=== PATIENT | female | born 1945 | race Caucasian/White ===

== ENCOUNTER 2020-06-22 10:03 | Outpatient (REF) | payer MEDICARE, SELFPAY ==
--- NOTE | 2020-06-22 10:16 | MR_ITS ---
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 COMPARISON: None available. TECHNIQUE: Multiplanar multisequence MR imaging of the brain and orbits obtained without and following the administration of 7.5 mL of Gadavist without complication. FINDINGS: MRI BRAIN: There is no pathologic intracranial enhancement. There is no hydrocephalus, extra-axial surface collection, or herniation. Is mild chronic microangiopathy. Two nodular flow voids project inferiorly from the terminal segment of the left internal carotid artery on image 10 of series 8, one of which could reflect an aneurysm of the anterior choroidal artery origin for which a MRA of the head is recommended for further assessment. The major flow voids at the skull base are preserved. There is no acute infarct on diffusion-weighted imaging. There is no intracranial hemorrhage on the gradient recalled echo acquisition. The midline structures are normal. The cerebellar tonsils are normally positioned. The cerebellum and brainstem are normal. The craniocervical junction is normal. Osseous marrow signal intensity is homogenous. 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 The remaining intraorbital soft tissues including the extraocular muscles, lacrimal glands, and optic nerves are normal. Preserved fat within the orbital fissures and pterygopalatine fossa bilaterally. Bone marrow signal is homogenous and normal. No pathologic signal nor enhancement within the optic nerves. Pituitary gland is homogenous and unremarkable. Cavernous sinuses are symmetric and normal MR/MR orbits face neck wo/w con IMPRESSION: - Two nodular flow voids project inferiorly from the terminal segment of the left internal carotid artery on image 10 of series 8, one of which could reflect an aneurysm of the anterior choroidal artery origin for which a MRA of the head is recommended for further assessment. - No acute intracranial findings. No enhancing lesions. Mild chronic microangiopathy. 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 No intraorbital mass lesions.
== END 2020-06-22 10:04 | disposition home or self-care (01) ==
LOC: HO.MRI 10:03
PROVIDERS: Visit Provider Emergency Medicine
DX: H49.02 Third [oculomotor] nerve palsy, left eye (principal)
CPT/HCPCS: 70543; 70553

== ENCOUNTER 2020-06-26 10:45 | Outpatient (REF) | payer MEDICARE, SELFPAY ==
--- NOTE | 2020-06-26 | MM_ITS ---
EXAMINATION: BONE DENSITOMETRY CLINICAL INDICATION: Other specified disorders of bone density and structure, unspecified site. COMPARISON: Previous BD dated 04/07/2013 and baseline BD dated 12/31/2007. TECHNIQUE: Using a [employer] DXA System (software version: 13.1) manufactured by [employer], dual-energy x-ray absorptiometry was performed of the lumbar spine and left hip. The images are of good technical quality. Summary results are attached. FINDINGS: AP SPINE L1-L4: Current: BMD 0.998 g/cm2, Z-score -0.1, T-score -1.5, osteopenia, 2.2% decrease from previous, 2.1% decrease from baseline (<5% change is not significant). Prior: BMD 1.020 g/cm2. Baseline: BMD 1.019 g/cm2. LEFT FEMUR, NECK: Current: BMD 0.883 g/cm2, Z-score 0.5, T-score -1.1, osteopenia. Prior: BMD 0.880 g/cm2. Baseline: BMD 0.908 g/cm2. LEFT FEMUR, TOTAL: Current: BMD 1.005 g/cm2, Z-score 1.4, T-score 0.0, normal, 3.6% decrease from previous, 4.3% decrease from baseline (<5% change is not significant). Prior: BMD 1.043 g/cm2. Baseline: BMD 1.050 g/cm2. IDENTIFIED RISK FACTORS: Dementia. Recurrent falls. Secondary osteoporosis (type 1 diabetes). Menopause. HISTORY OF FRACTURE: None listed. MEDICATIONS: Calcium supplement and/or multivitamin. Vitamin D. MM/XR DEXA axial skeleton IMPRESSION: 1. DIAGNOSIS: Osteopenia based on the lowest T-score value of -1.5 in the lumbar spine applying World Health Organization criteria. 2. 10-YEAR FRACTURE RISK PREDICTION, FRAX: Major osteoporotic fracture (clinical spine, forearm, hip or shoulder) 5.2%. Hip fracture 0.7%. 3. Treatment Recommendations: NOF guidelines recommend consideration for treatment in postmenopausal women and men age 50 and older presenting with the following: -A hip or vertebral (clinical or morphometric) fracture. -T-score less than or equal to -2.5 at the femoral neck or spine after appropriate evaluation to exclude secondary causes. -Low bone mass at the hip or spine and a 10-year fracture probability by FRAX of greater than or equal to 3% for hip fracture or greater than or equal to 20% for major osteoporotic fracture based on the [place] adapted WHO algorithm. 4. Other Recommendations: All treatment decisions require clinical judgment and consideration of individual patient factors, including patient preferences, comorbidities, previous drug use, risk factors not captured in the FRAX model (e.g. frailty, falls, vitamin D deficiency, increased bone turnover, interval significant decline in bone density) and possible under or overestimation of fracture risk by FRAX. Additional medical evaluation for secondary cause of low bone mineral density may be appropriate. FUTURE SCAN RECOMMENDATION: People with diagnosed cases of osteoporosis or at high risk for fracture should have regular bone mineral density tests. For patients eligible for Medicare, routine testing is allowed once every 2 years. The testing frequency can be increased to one year for patients who have rapidly progressing disease, those who are receiving or discontinuing medical therapy to restore bone mass, or have additional risk factors.
== END 2020-06-26 10:46 | disposition home or self-care (01) ==
LOC: HO.MAMMO 10:45
PROVIDERS: Visit Provider Registered Nurse
DX: Z13.820 Encounter for screening for osteoporosis (principal); M85.80 Other specified disorders of bone density and structure, unspecified site; M81.0 Age-related osteoporosis without current pathological fracture; E10.9 Type 1 diabetes mellitus without complications; F03.90 Unspecified dementia, unspecified severity, without behavioral disturbance, psychotic disturbance, mood disturbance, and anxiety; Z91.81 History of falling
CPT/HCPCS: 77080

== ENCOUNTER 2020-08-06 13:48 | Emergency (ER) | payer MEDICARE, SELFPAY ==
--- NOTE | 2020-08-06 14:16 | CT_ITS ---
EXAMINATION: CT HEAD WITHOUT CONTRAST CLINICAL INFORMATION: Headache COMPARISON: Head CT 03/23/2018 TECHNIQUE: Contiguous axial imaging was performed from the skull base to vertex without intravenous administration of contrast. This CT examination was performed using dose optimization techniques as appropriate, variously including the following: *Automated exposure control *Adjustment of mA and/or kV according to patient size (this includes techniques or standardized protocols for targeted exams where dose is matched to indication/reason for exam; i.e. extremities or head) *Use of iterative reconstruction technique DLP: 750 to mGy-cm FINDINGS: There is no evidence of acute intracranial hemorrhage or territorial infarction. No abnormal mass effect or midline shift is seen. Bassett to white matter differentiation is well preserved. No extra-axial fluid collections are identified. The ventricles are normal in size. There is no abnormal attenuation within the brain parenchyma. The osseous structures and soft tissues are normal. The mastoid air cells and visualized portions of the paranasal sinuses are well aerated. CT/CT head/brain wo con IMPRESSION: No acute intracranial pathology.
--- NOTE | 2020-08-06 14:16 | ED_ITS ---
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 Mode of arrival: ambulatory Limitations: no limitations History of Present Illness MD elicited complaint: headache Onset (ago): hour(s) (1) Onset description: suddenly Location: right Severity: moderate Quality & Timing: throbbing and sharp Exacerbating factors: none Relieving factors: nothing Context: occurred at rest Associated symptoms: other (feels her R eye is blurry) Treatments prior to arrival: none Related Data Allergies Allergy/AdvReac Type Severity Reaction Status Date / Time simvastatin Allergy Unknown Verified 11/18/19 00:00 No Known Allergies Allergy Unverified 05/17/20 16:42 [No Known Allergies*] Septra Allergy Unknown Uncoded 11/18/19 00:00 Review of Systems Review of Systems: Constitutional : No Fever, No Chills, No Fatigue ENT/Mouth : No sore throat, No Rhinorrhea Eyes: No Eye Pain, No Swelling, No Redness, reports blurry vision in R eye Cardiovascular : No Chest Pain, No SOB, No Dyspnea on Exertion Respiratory : No Cough, No Sputum Gastrointestinal : No Nausea, No Vomiting, No Diarrhea, No abdominal Pain Genitourinary : No Dysuria, No Urinary Frequency, No Hematuria, Musculoskeletal : No joint pain, No Myalgias, No Joint Swelling Skin : No Skin Lesions, No rash Neuro : No Weakness, No Numbness, No Dizziness, positive Headache Psych : No Anxiety/Panic, No Depression Heme/Lymph: No Bruising, No Bleeding,No Lymphadenopathy Endocrine : No Polyuria, No Polydipsia All other systems reviewed and are negative [facility] Past Medical History Attestation statement: The following information was validated with the patient. Source: old records reviewed Medical History Anxiety Regan's palsy Chronic back pain Dementia Depression Diabetes HTN (hypertension) Hyperlipidemia Legally blind in left eye, as defined in [place] Social History Social History (Updated 08/06/20 @ 14:22 by Mily Licona DO) Alcohol intake: unknown Smoking Status: Never smoker Use of substances other than those prescribed or required for medical reasons: Unknown Advance Directives: No Advance Directives Information Provided: Yes Physical Exam Vital Signs: Vital Signs: Last Vital Signs Temp 96.8 F 08/06/20 14:23 Pulse 81 08/06/20 14:23 Resp 18 08/06/20 14:23 BP 139/64 08/06/20 14:23 Pulse Ox 97 08/06/20 14:23 Body Mass Index 56.8 Appearance: Alert. Oriented X3. No acute distress. Eyes: R pupil 3mm round and reactive to light. L pupil 4mm reactive to light, L eye are does not close well appears chronic from her bells palsy, L eye is wa trevor, her face is similar to her picture ID IOP [id number] ENT: Pharynx normal. Neck: Normal inspection. Neck supple. CVS: Normal heart rate and rhythm. Pulses normal. Respiratory: No respiratory distress. Breath sounds normal. Abdomen: Soft and non-tender. Skin: Skin warm and dry. Normal skin color. Normal skin turgor. Extremities: No lower extremity edema. No calf ttp Neuro: Oriented X 3. No motor deficit. No sensory deficit. Course Course Course Narrative: given reported blurry vision although it seems to better will obtain labs and CTA to r/o mass signed out to GEO Garcias pending labs and CTA MDM - Headache MDM Narrative Medical decision making narrative: 75 yo female with HTN, DM, bells palsy comes in with 1 hour of R sided headache throbbing into her R eye reports blurry vision at this time will need CT head and pressures of eye, no other deficits noted. Lab Data Result diagrams: 08/06/20 15:49 08/06/20 15:49 Labs: Lab Results 08/06/20 08/06/20 Range/Units 15:49 15:49 WBC 7.2 (4.8-10.8) X10*3/uL RBC 4.72 (4.20-5.50) X10*6/uL Hgb 14.0 (12.0-16.0) g/dl Hct 42.6 (37-47) % MCV 90.3 (80-98) fL MCH 29.7 (27.0-33.0) pg MCHC 32.9 (31.0-35.0) g/dl RDW 11.9 (11.0-16.0) % Plt Count 214 (160-400) X10*3/uL MPV 10.6 (9.4-12.3) fL Absolute Nucleated RBC 0.000 (0.0-0.012) X10*3/uL Nucleated RBC % (auto) 0.0 (0.0-0.2) /100WBC Hold Blue Top SEE NOTE Discharge Plan Discharge Clinical Impression: Headache Qualifiers: Headache type: unspecified Headache chronicity pattern: acute headache Intractability: not intractable Qualified Code(s): R51.9 - Headache, unspecified Instructions: Acute Headache (ED) Additional Instructions: return to ED for any worsening symptoms or concerns Referrals: Physician,Unknown [Primary Care Provider] - 2 days (PCP if not better) Print Language: Croatian
[2020-08-06 14:23] VITALS: BP 139/64; PULSE 81; RESP 18; TEMP 36; O2SAT 97; BMI 56.8
[2020-08-06] MEDS: Acetaminophen 325 MG TABLET 650 MG PO (14:37)
--- NOTE | 2020-08-06 15:19 | CT_ITS ---
EXAMINATION: CT ANGIOGRAM NECK WITH CONTRAST CT ANGIOGRAM BRAIN WITH CONTRAST CLINICAL INFORMATION: Right-sided headache and blurry vision. COMPARISON: Head CT 03/23/2018. TECHNIQUE: Test bolus sequences followed by intravenous administration 70 mL of Omnipaque 350. Helical imaging was performed in the axial plane from the thoracic inlet to the skull vertex. Delayed postcontrast imaging of the head was also performed. The data was processed at the learning technologist workstation for generation of MIP sequences. Angled MIPs and volume rendered reformatted images were also generated at an offline 3D workstation under concurrent supervision. Stenoses are assessed in accordance with NASCET criteria unless otherwise indicated. This CT examination was performed using dose optimization techniques as appropriate, variously including the following: *Automated exposure control *Adjustment of mA and/or kV according to patient size (this includes techniques or standardized protocols for targeted exams where dose is matched to indication/reason for exam; i.e. extremities or head) *Use of iterative reconstruction technique FINDINGS: BRAIN: [There is no intracranial hemorrhage, hydrocephalus, extra-axial surface collection, midline shift, or other herniation pattern. Bassett to white matter differentiation is diffusely maintained without evidence of an evolved acute territorial infarct. The basilar cisterns are preserved. No significant soft tissue abnormality. No acute osseous abnormality. The paranasal sinuses and the mastoid air cells are well aerated.] CERVICAL SOFT TISSUES AND LUNG APICES: [Unremarkable. ] NECK CTA: [There is a classic 3 vessel configuration of the aortic arch. Proximal arch vessels are non-stenotic. The vertebral arteries are codominant. No significant ostial stenosis is visualized on either side. Both vertebral arteries are widely patent throughout their extracranial cervical course. Both common carotid arteries are normal in course and caliber.] There is beaded irregularity of the cervical internal carotid arteries bilaterally suggesting underlying fibromuscular dysplasia. BRAIN CTA: [There is normal opacification of major intracranial arteries. No focal flow-limiting stenosis nor discrete proximal large artery occlusion. 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 Timing of the contrast bolus allows assessment of the major dural venous sinuses, which all opacify normally] CT/CT angio head neck IMPRESSION: No acute intracranial findings. 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 There is beaded irregularity of the cervical internal carotid arteries bilaterally suggesting underlying fibromuscular dysplasia. No acute arterial occlusions and no significant arterial stenoses within the head or neck
[2020-08-06] MEDS: oxyCODONE HCl Immed Release 5 MG TABLET PO (15:38)
[2020-08-06] MEDS: Tetracaine HCl/PF 0.5% Oph Sol 4 ML DROPS 3 DROP EYE-RIGHT (15:39)
[2020-08-06 15:56] LABS: Hematocrit 42.6 % (37-47); Mean Corpuscular HGB Conc 32.9 g/dl (31.0-35.0); Mean Corpuscular Hemoglobin 29.7 pg (27.0-33.0); Mean Corpuscular Volume 90.3 fL (80-98); Mean Platelet Volume 10.6 fL (9.4-12.3); Platelet Count 214 X10*3/uL (160-400); Red Blood Count 4.72 X10*6/uL (4.20-5.50); Red Cell Distribution Width 11.9 % (11.0-16.0); White Blood Count 7.2 X10*3/uL (4.8-10.8)
[2020-08-06 16:24] LABS: Anion Gap 11 (12-20); Blood Urea Nitrogen 13 mg/dL (9-16); Calcium 8.9 mg/dL (8.4-10.2); Carbon Dioxide 28 mmol/L (22-29); Chloride 100 mmol/L (96-108); Creatinine Clr Calc Pharmacy 89.5; Estimated Glomerular Filt Rate > 60; Glucose Random 274 mg/dL (60-115); Potassium 4.4 mmol/l (3.3-5.1); Sodium 135 mmol/L (135-145)
[2020-08-06 16:37] VITALS: BP 136/82; PULSE 71
[2020-08-06] MEDS: iohexoL 350 MG/ML 100 ML INFUS..BTL IV (18:32)
[2020-08-06 18:58] VITALS: BP 151/63; PULSE 61; RESP 14; O2SAT 98
== END 2020-08-06 19:39 | disposition home or self-care (01) ==
PROVIDERS: Emergency Provider Emergency Medicine
DX: R51.9 Headache, unspecified (principal); I10 Essential (primary) hypertension; E11.9 Type 2 diabetes mellitus without complications; R93.0 Abnormal findings on diagnostic imaging of skull and head, not elsewhere classified; I67.1 Cerebral aneurysm, nonruptured
CPT/HCPCS: 36415; 70450; 70496; 70498; 80048; 85027; 99284; Q9967

== ENCOUNTER 2020-08-10 12:48 | Outpatient (REF) | payer MEDICARE, SELFPAY ==
--- NOTE | 2020-08-10 | MR_ITS ---
MR ANGIOGRAPHY BRAIN WITHOUT CONTRAST CLINICAL INFORMATION: 3rd nerve palsy. COMPARISON: CTA head and neck 08/06/2020. TECHNIQUE: A noncontrast [id number] MRA of the head is obtained. Vascular post-processing, including 2-dimensional and 3-dimensional reformatted images were created and reviewed on an independent workstation under concurrent physician supervision. Stenoses are graded per criteria similar to NASCET. FINDINGS: There is a stable appearing 3 mm saccular aneurysm projecting inferiorly from the terminal segment of the left internal carotid artery. No new aneurysms intracranially. No significant arterial stenoses and no acute arterial occlusions intracranially. MR/MR angio head wo con IMPRESSION: There is a stable appearing 3 mm saccular aneurysm projecting inferiorly from the terminal segment of the left internal carotid artery
== END 2020-08-10 12:49 | disposition home or self-care (01) ==
LOC: HO.MRI 12:48
PROVIDERS: Visit Provider Registered Nurse
DX: H49.02 Third [oculomotor] nerve palsy, left eye (principal); R93.0 Abnormal findings on diagnostic imaging of skull and head, not elsewhere classified
CPT/HCPCS: 70544

== ENCOUNTER 2020-10-17 07:14 | Outpatient (REF) | payer MEDICARE, SELFPAY ==
[2020-10-17 09:20] LABS: MANUAL DIFF FLAG NO
[2020-10-17 09:26] LABS: Basophils Percent Auto 0.6 % (0-2); Eosinophils Percent Auto 0.5 % (0-4); Hematocrit 42.2 % (37-47); Hemoglobin 13.9 g/dl (12.0-16.0); Imm Gran Abs Auto 0.03 X10*3/uL (0.00-0.03); Imm Gran Pct Auto 0.5 % (0.0-0.4); Lymphocytes Absolute Auto 1.6 X10*3/uL (1.2-4.9); Lymphocytes Percent Auto 25.3 % (20-40); Mean Corpuscular HGB Conc 32.9 g/dl (31.0-35.0); Mean Corpuscular Hemoglobin 29.6 pg (27.0-33.0); Mean Platelet Volume 11.1 fL (9.4-12.3); Monocytes Absolute Auto 0.4 X10*3/uL (0.1-1.2); Monocytes Percent Auto 6.3 % (2-11); Neutrophils Absolute Auto 4.2 X10*3/uL (2.0-8.3); Neutrophils Percent Auto 66.8 % (45-73); Platelet Count 222 X10*3/uL (160-400); Red Blood Count 4.69 X10*6/uL (4.20-5.50); Red Cell Distribution Width 11.9 % (11.0-16.0); White Blood Count 6.2 X10*3/uL (4.8-10.8)
[2020-10-17 09:53] LABS: Glucose Urine UA >=1000 MG/DL (NEG); Leukocyte Esterase Urine NEG (NEG); Nitrite Urine NEG (NEG); Specific Gravity - Urine 1.015 (1.005-1.025); Urine Blood NEG (NEG); Urine Ketones NEG (NEG); Urine Protein NEG (NEG-TRACE)
[2020-10-17 09:54] LABS: Appearance Urine CLEAR; Color Urine YELLOW
[2020-10-17 09:55] LABS: Alanine Aminotransferase 14 U/L (0-31); Albumin Level 4.2 g/dL (3.5-5.0); Alkaline Phosphatase 149 U/L (39-117); Anion Gap 11 (12-20); Aspartate Amino Transferase 13 U/L (5-31); Bilirubin Total 0.7 mg/dL (0.0-1.0); Blood Urea Nitrogen 11 mg/dL (9-16); C Reactive Protein 0.99 mg/dL (< or = 0.50); Calcium 9.3 mg/dL (8.4-10.2); Carbon Dioxide 27 mmol/L (22-29); Chloride 101 mmol/L (96-108); Estimated Glomerular Filt Rate 57; Potassium 4.2 mmol/L (3.3-5.1); Rheumatoid Factor < 15.0 IU/mL (<15.0); Sodium 135 mmol/L (135-145); Total Protein 7.6 g/dL (6.5-8.0)
[2020-10-17 10:09] LABS: RBC Urine 0-2 /HPF (0); Squamous Epithelial Cell Urine TRACE /LPF
[2020-10-17 10:09] LABS: Erythrocyte Sedimentation Rate 23 MM/HR (0-20)
[2020-10-17 10:14] LABS: HBc Num1 0.19 S/CO (0.00-0.79); Hepatitis A Antibody IgM 0.72 Index (0-0.79); Hepatitis B Core Antibody Nonreactive (Nonreactive); Thyroid Stimulating Hormone 2.46 uIU/mL (0.32-4.0); ~HepC Num1 0.08 S/CO (0.00-0.79); ~Hepatitis A Antibody IgM Nonreactive (Nonreactive); ~Hepatitis B Surface Antibody NONREACTIVE (Nonreactive); ~Hepatitis C Antibody Nonreactive (Nonreactive)
[2020-10-17 10:19] LABS: Glucose Random 406 mg/dL (60-115)
[2020-10-17 10:44] LABS: HBsAGNum1 0.18 S/CO (0.00-0.99); Hepatitis B Surface Antigen Negative (Negative)
[2020-10-18 12:26] LABS: Anti DNA DS Antibody 16 IU/mL; Antibody to SS-A Antigen <1.0 NEG AI (<1.0 NEG); Antibody to SS-B Antigen <1.0 NEG AI (<1.0 NEG); SM/Ribonucleoprotein Ab <1.0 NEG AI (<1.0 NEG); Scleroderma 70 Antibody <1.0 NEG AI (<1.0 NEG); Smith Protein <1.0 NEG AI (<1.0 NEG)
[2020-10-18 13:16] LABS: Cyclic Citrullinated Peptide <16 UNITS; PTT (LAC) Screen 35 sec (< OR = 40)
[2020-10-18 13:42] LABS: Anti Nuclear Antibody Screen NEGATIVE (NEGATIVE); Beta-2 Microglobulin, Serum 2.18 mg/L (< OR = 2.51)
[2020-10-18 14:52] LABS: Thyroglobulin Antibodies <1 IU/mL (< or = 1); Thyroid Peroxidase Antibodies 1 IU/mL (<9)
[2020-10-19 14:12] LABS: Complement C3 79 mg/dL (83-193)
[2020-10-20 21:41] LABS: Cardiolipin IgG Ab <14 GPL; Cardiolipin IgM Ab <12 MPL
== END 2020-10-17 07:15 | disposition home or self-care (01) ==
LOC: HO.LAB 07:14
PROVIDERS: PCP Nurse Practitioner Family; Visit Provider Student in an Organized Health Care Education/Training Program
DX: R76.8 Other specified abnormal immunological findings in serum (principal)
CPT/HCPCS: 36415; 80053; 81001; 82232; 84443; 85025; 85597; 85613; 85652; 85730; 86038; 86039; 86140; 86147; 86160; 86200; 86225; 86235; 86376; 86431; 86704; 86706; 86709; 86800; 86803; 87340; 99202

== ENCOUNTER → 2020-11-02 13:42 | Outpatient (BNVA) | payer MEDICARE, SELFPAY | PROVIDERS: PCP Nurse Practitioner Family; Visit Provider Student in an Organized Health Care Education/Training Program | DX: R76.8 Other specified abnormal immunological findings in serum (principal) | CPT/HCPCS: 99212 ==

== ENCOUNTER 2021-01-17 11:45 | Outpatient (REF) | payer MEDICARE, SELFPAY ==
--- NOTE | ~2021-01-17 | MM_ITS ---
EXAMINATION: MM SCREENING DIGITAL BREAST TOMOSYNTHESIS, BILATERAL CLINICAL INFORMATION: Screening. Asymptomatic. The lifetime risk of breast cancer based on the Tyrer-Cuzick Model is 2%. COMPARISON: Mammography: 11/14/2019, 09/16/2018, 06/12/2017, 05/07/2016, 04/05/2015 TECHNIQUE: Digital breast tomosynthesis is performed in both the craniocaudal and mediolateral oblique views along with computer-aided detection (CAD). Synthesized 2D images are generated from the tomosynthesis. FINDINGS: There are scattered areas of fibroglandular density (ACR BI-RADS breast composition Category b). Parenchymal pattern is similar to prior studies. There are scattered bilateral asymmetries similar to prior exams. There is no developing density or interval mass or architectural abnormality or abnormal calcifications. Left breast again shows heavily calcified mass anterior breast consistent with degenerating fibroadenoma. There is a biopsy clip marker overlying stable asymmetric fibroglandular density mid 6:00 position, stable. Right breast has stable asymmetries central and posterior outer breast and stable circumscribed nodule mid 9:00 position. There are bilateral vascular calcifications. The axilla and skin contours are unremarkable. MM/MM tomosynthesis screening BI IMPRESSION: No significant changes from prior studies. ASSESSMENT: BI-RADS 2: Benign RECOMMENDATION: Routine annual mammography screening. This patient's information was entered into a reminder system with a target due date for their next mammogram.
== END 2021-01-17 11:46 | disposition home or self-care (01) ==
LOC: HO.MAMMO 11:45
PROVIDERS: Visit Provider Internal Medicine
DX: Z12.31 Encounter for screening mammogram for malignant neoplasm of breast (principal)
CPT/HCPCS: 77063; 77067

== ENCOUNTER 2021-06-19 14:08 | Outpatient (REF) | payer MEDICARE, SELFPAY ==
[2021-06-19 15:15] LABS: Estimated Average Glucose 266 mg/dL; Hemoglobin A1c % 10.9 %
== END 2021-06-19 14:09 | disposition home or self-care (01) ==
LOC: HO.LAB 14:08
PROVIDERS: Visit Provider Psychiatry & Neurology Neurology
DX: H49.21 Sixth [abducent] nerve palsy, right eye (principal)
CPT/HCPCS: 36415; 83036

== ENCOUNTER 2021-09-17 09:01 | Outpatient (REF) | payer MEDICARE, SELFPAY ==
[2021-09-17 09:40] LABS: COVID-19 Test Negative (Negative)
== END 2021-09-17 09:02 | disposition home or self-care (01) ==
LOC: HO.LAB 09:01
PROVIDERS: Visit Provider Internal Medicine
DX: Z20.822 Contact with and (suspected) exposure to COVID-19 (principal)
CPT/HCPCS: 87635; C9803

== ENCOUNTER 2022-06-12 08:50 | Outpatient (REF) | payer MEDICARE, SELFPAY ==
--- NOTE | ~2022-06-12 | MM_ITS ---
EXAMINATION: MM SCREENING DIGITAL BREAST TOMOSYNTHESIS, BILATERAL CLINICAL INFORMATION: Screening. Asymptomatic. The lifetime risk of breast cancer based on the Tyrer-Cuzick Model is 2.1%. COMPARISON: Mammography: January 17, 2021 and studies dating back to January 27, 2014 TECHNIQUE: Digital breast tomosynthesis is performed in both the craniocaudal and mediolateral oblique views along with computer-aided detection (CAD). Synthesized 2D images are generated from the tomosynthesis. FINDINGS: There are scattered areas of fibroglandular density (ACR BI-RADS breast composition Category b). There are no new significant masses, abnormal calcifications, or other abnormalities. MM/MM tomosynthesis screening BI IMPRESSION: No significant changes from prior exam. ASSESSMENT: BI-RADS 1: Negative RECOMMENDATION: Routine annual mammography screening. This patient's information was entered into a reminder system with a target due date for their next mammogram.
== END 2022-06-12 08:51 | disposition home or self-care (01) ==
LOC: HO.MAMMO 08:50
PROVIDERS: Visit Provider Internal Medicine
DX: Z12.31 Encounter for screening mammogram for malignant neoplasm of breast (principal)
CPT/HCPCS: 77063; 77067

== ENCOUNTER 2023-06-20 07:25 | Outpatient (REF) | payer OTHER, SELFPAY ==
--- NOTE | ~2023-06-20 | MM_ITS ---
EXAMINATION: MM SCREENING DIGITAL BREAST TOMOSYNTHESIS, BILATERAL CLINICAL INFORMATION: Screening. Asymptomatic. COMPARISON: Mammography: This study is compared with prior exams dating back to 2019. TECHNIQUE: Digital breast tomosynthesis is performed in both the craniocaudal and mediolateral oblique views along with computer-aided detection (CAD). Synthesized 2D images are generated from the tomosynthesis. FINDINGS: There are scattered areas of fibroglandular density (ACR BI-RADS breast composition Category b). In the upper outer quadrant of the right breast, there is an area of focal asymmetry for which additional mammographic imaging is advised. Targeted sonography is at the discretion of the diagnostic radiologist. In the left breast, there are no significant masses, abnormal calcifications, or other abnormalities. There are coarse benign calcifications in biopsied oval, benign mass containing a tissue marker at the inferior aspect of the left breast. Just anteromedial to this mass is a coarsely calcified fibroadenoma, a benign entity. MM/MM tomosynthesis screening BI IMPRESSION: Focal asymmetry of the right breast warrants additional mammographic evaluation. For all diagnostic imaging of the right breast, and the scars the patient may have should be marked. Benign findings left breast. ASSESSMENT: BI-RADS BI-RADS 0 - Incomplete: Needs additional Imaging. RECOMMENDATION: 1. Additional views of the right breast 2. Targeted ultrasound if warranted after review of the additional views. 3. Radiology department staff will contact the patient for additional imaging. Additional Imaging required This examination should not preclude the clinical evaluation of a suspicious palpable abnormality. This patient's information was entered into a reminder system with a target due date for their next mammogram.
== END 2023-06-20 07:26 | disposition home or self-care (01) ==
LOC: HO.MAMMO 07:25
PROVIDERS: PCP Registered Nurse; Visit Provider Internal Medicine
DX: Z12.31 Encounter for screening mammogram for malignant neoplasm of breast (principal)
CPT/HCPCS: 77063; 77067

== ENCOUNTER → 2023-06-20 07:30 | Outpatient (BNV) | payer OTHER, SELFPAY | PROVIDERS: PCP Registered Nurse; Visit Provider Radiology Diagnostic Radiology | DX: Z12.31 Encounter for screening mammogram for malignant neoplasm of breast (principal) | CPT/HCPCS: 77063; 77067 ==

== ENCOUNTER 2023-07-21 11:32 | Outpatient (REF) | payer OTHER, SELFPAY ==
--- NOTE | ~2023-07-21 | MM_ITS ---
EXAMINATION: MM DIAGNOSTIC DIGITAL BREAST TOMOSYNTHESIS, RIGHT CLINICAL INFORMATION: Evaluate focal asymmetry upper outer quadrant seen on screening exam. By history, patient has had history of remote excisional benign right biopsy in the upper outer quadrant. COMPARISON: Mammography: 06/20/2023, 06/12/2022, 01/17/2021, 08/10/2020, and dating back to 2019. TECHNIQUE: Digital breast tomosynthesis is performed. 2D images are generated from the tomosynthesis. The following views are obtained: Full-field 3-D right mediolateral view, and large paddle spot compression 3-D views in the right MLO and right CC projections. FINDINGS: There are scattered areas of fibroglandular density (ACR BI-RADS breast composition Category b). Diagnostic views demonstrate the asymmetric density as indicated in the 06/20/2023 screening exam is scarring from post excisional biopsy in the past, which was benign. In addition, there are stable nodules in the 9:00 position and scattered bilateral asymmetries similar to prior exams. There is no developing density, mass, or new architectural distortion. There is no new suspicious pleomorphic calcifications. MM/MM tomosynthesis added views R IMPRESSION: No findings suspicious for malignancy. Benign findings as above, with primary abnormality relating to benign scarring from excisional biopsy upper outer right breast. ASSESSMENT: BI-RADS BI-RADS 2 - Benign Findings RECOMMENDATION: 1 year F/U Results were provided to the patient at time of visit by the technologist. This patient's information was entered into a reminder system with a target due date for their next mammogram.
== END 2023-07-21 11:33 | disposition home or self-care (01) ==
LOC: HO.MAMMO 11:32
PROVIDERS: PCP Registered Nurse; Visit Provider Registered Nurse
DX: N64.89 Other specified disorders of breast (principal)
CPT/HCPCS: 77061; 77065

== ENCOUNTER → 2023-07-21 12:30 | Outpatient (BNV) | payer OTHER, SELFPAY | PROVIDERS: PCP Registered Nurse; Visit Provider Radiology Diagnostic Radiology | DX: R92.8 Other abnormal and inconclusive findings on diagnostic imaging of breast (principal) | CPT/HCPCS: 77061; 77065 ==

== ENCOUNTER 2024-08-15 11:07 | Outpatient (REF) | payer OTHER, SELFPAY | END 2024-08-15 11:08 | disposition home or self-care (01) | LOC: HO.MAMMO 11:07 | PROVIDERS: PCP Registered Nurse; Visit Provider Registered Nurse | DX: Z12.31 Encounter for screening mammogram for malignant neoplasm of breast (principal) | CPT/HCPCS: 77063; 77067 ==

== ENCOUNTER → 2024-08-15 12:15 | Outpatient (BNV) | payer OTHER, SELFPAY | PROVIDERS: PCP Registered Nurse; Visit Provider Internal Medicine | DX: Z12.31 Encounter for screening mammogram for malignant neoplasm of breast (principal) | CPT/HCPCS: 77063; 77067 ==

== ENCOUNTER 2025-07-20 15:57 | Outpatient (REF) | payer OTHER, SELFPAY ==
[2025-07-20 17:18] LABS: Microalbum/Creatinine Ratio Ur 507.4 ug/mg cr (<30)
--- OUTSIDE RECORDS SUMMARY | 2025-07-20 20:50 | XMS_ITS | Clinical Summary ---
Author Organization [facility] Address [address] [place] [address] Phone Care Team Providers Care Jacquard Lace Weaver Name Role Phone Physician, Pcp Unknown Primary Care Provider Katya vailable Allergies No known active allergies Medications No known medications Active Problems No known active problems Social History Tobacco Use Types Packs/Day Years Used Date Smoking Tobacco: Never Smokeless Tobacco: Never Tobacco Cessation:Counseling Given: Not Answered Comments Unknown Sex and Gender Information Value Date Recorded Sex Assigned at Female 11/18/2024 1:45 PM EDT Legal Sex Female 4:53 AM EST Gender Identity Female 11/18/2024 1:45 PM EDT Sexual Orientation Straight 11/18/2024 1: 45 PM EDT Obstetrics History Last Filed Vital Signs Vital Sign Reading Time Taken Comments Blood Pressure 165/68 11/18/2024 5:06 PM EDT Pulse 78 11/18/2024 5:06 PM EDT Temperature 37.2 C (99 F) 11/18/2024 5:06 PM EDT Respiratory Rate 18 11/18/2024 5:06 PM EDT Oxygen Saturation 100% 11/18/2024 5:06 PM EDT Inhaled Oxygen Concentration - - Weight 74.8 kg (165 lb) 11/18/2024 11:31 AM EDT Height 157.5 cm (5' 2 ) 11/18/2024 11:31 AM EDT Body Mass Index 30.18 11/18/2024 11:31 AM EDT Plan of Treatment Health Maintenance Due Date Last Done Comments Diabetes: Annual Foot Exam 1955 Diabetes: Annual Retina Eye Exam 1955 Zoster Vaccines (2 of 3) 08/28/2014 07/03/2014 Falls Risk Assessment 09/29/2023 Hepatitis C Screening 09/29/2023 Medicare Annual Wellness Visit 09/29/2023 Osteoporosis Screening (Bone Density Screening) 09/29/2023 Social Influencers of Health Screening 09/29/2023 Depression Screening 08/31/2024 Diabetes: Annual Urine Albumin-Creatinine Ratio (uACR) 11/18/2024 Diabetes: Blood Sugar Control Test (HGBA1C) 03/29/2025 09/29/2024 COVID-19 Vaccine ( season) 2025 11/22/2021, 01/02/2021, 12/05/2020 Influenza Vaccine (#1) 2025 , 05/19/2019, 06/18/2017, Additional history exists Diabetes: Annual GFR (Glomerular Filtration Rate) 11/18/2025 11/18/2024 Hypertension/CHF/CAD Annual BMP Blood Test 11/18/2025 11/18/2024 Cholesterol Screening (Lipid Panel) 02/21/2028 02/20/2023 DTaP,Tdap,and Td Vaccines (4 - Td or Tdap) 12/02/2028 12/02/2018, 12/17/2010, 10/08/2000 Pneumococcal Vaccine: 50+ Years Completed 11/12/2023, 06/18/2017, 09/14/2015, Additional history exists RSV Immunization Adult Patients Completed 11/12/2023 HIB Vaccines Aged Out No longer eligi ble based on patient's age to complete this topic HPV Vaccines Aged Out No longer eligi ble based on patient's age to complete this topic Hepatitis A Vaccines Aged Out No long er eligible based on patient's age to complete this topic Hepatitis B Vaccines Aged Out No long er eligible based on patient's age to complete this topic IPV Vaccines Aged Out No longer eligi ble based on patient's age to complete this topic MMR Vaccines Aged Out No longer eligi ble based on patient's age to complete this topic Meningococcal ACWY Vaccine Aged Out N o longer eligible based on patient's age to complete this topic Meningococcal B Vaccine Aged Out No l onger eligible based on patient's age to complete this topic RSV Immunization Patients Under 20 months Aged Out No longer eligible based on patient's age to complete this topic Varicella Vaccines Aged Out No longer eligible based on patient's age to complete this topic Procedures Procedure Name Priority Date/Time Associated Diagnosis Comments BASIC METABOLIC PANEL STAT 11/18/2024 12:10 PM EDT from Last 3 Months or Most Recently Relevant to Health Maintenance Results * (ABNORMAL) Basic metabolic panel (11/18/2024 12:10 PM EDT) Sodium 138 133 - 145 mmol/L LAB CHEMISTRY METHOD 11/18/2024 12:54 PM [facility] Potassium 4.6 3.5 - 5.5 mmol/L LAB CHEMISTRY METHOD 11/18/2024 12:54 PM [facility] Chloride 106 96 - 110 mmol/L LAB CHEMISTRY METHOD 11/18/2024 12:54 PM [facility] CO2 24 21 - 32 mmol/L LAB CHEMISTRY METHOD 11/18/2024 12:54 PM [facility] Anion Gap 8 3 - 11 LAB CHEMISTRY METHOD 11/18/2024 12:54 PM [facility] Glucose 180(H) 70 - 100 mg/dL LAB CHEMISTRY METHOD 11/18/2024 12:54 PM [facility] BUN 22 5 - 25 mg/dL LAB CHEMISTRY METHOD 11/18/2024 12:54 PM [facility] Creatinine 1.03 0.50 - 1.10 mg/dL LAB CHEMISTRY METHOD 11/18/2024 12:54 PM [facility] eGFR 56(L) >=60 mL/min/1. 73m2 LAB CHEMISTRY METHOD 11/18/2024 12:54 PM [facility] Comment:Calculation based on the Chronic Kidney Disease Epidemiology Collaboration (CKD-EPI) equation refit without adjustment for race. BUN/Creatinine Ratio 21.4 LAB CHEMISTRY METHOD 11/18/2024 12:54 PM [facility] Calcium 9.6 8.5 - 10.5 mg/dL LAB CHEMISTRY METHOD 11/18/2024 12:54 PM [facility] Blood Venous blood specimen / Unknown Venipuncture / Unknown 11/18/2024 12:10 PM EDT 11/18/2024 12:16 PM EDT Shekhar Plata MD LAB BLOOD ORDERABLES Final Result [facility] [address] [place] [address], from Last 3 Months or Most Recently Relevant to Health Maintenance Insurance MEDICAID - [place] [employer] MEDICARE Care Teams Jacquard Lace Weaver Relationship Specialty Start Date End Date Physician, Pcp Unknown PCP - General 11/18/24
--- OUTSIDE RECORDS SUMMARY | 2025-07-20 20:50 | XMS_ITS | Patient Health Record ---
Author Organization [facility] Address [address] [place] [address] Care Team Providers Care Typesetting Supervisor Name Role Phone Tanner Daniel NP Primary Care Provider Fredrick Garcia Unavailable [phone] Reason For Referral No Information Medications Medication SIG (Take, Route, Frequency, Duration) Notes Start Date End Date Status Tylenol with Codeine #3 300-30 MG Tablet 1 tablet as needed Orally every 6 hrs Active Calcium 600 + D Acti ve Zostavax 38957 UNT/0.65ML Solution Reconstituted Subcutaneous Activ e Sertraline HCl 25 MG Tablet 1 tablet Ora lly Once a day Active Artificial Tear Gel Ophthalmic Active Zestril 10 MG Tablet 1 tablet Orally Onc e a day Active Aspir-81 81 MG Tablet Delayed Release 1 tablet Orally Once a day Active metFORMIN HCl 500 MG Tablet 1 tablet wit h meals Orally Twice a day Active Niaspan 500 MG Tablet Extended Release 1 tablet at bedtime Orally Once a day Active Santyl 250 UNIT/GM Ointment 1 applicatio n to affected area Externally Once a day Active Betamethasone Dipropionate 0.05 % Cream 1 application to affected area Externally Once a day Active Donepezil HCl 10 MG Tablet 1 tablet at b edtime Orally Once a day Active Cerovite Active Namenda 10 MG Tablet 1 tablet Orally Twi ce a day Active Crestor 20 MG Tablet 1 tablet Orally Onc e a day Active Haloperidol 0.5 MG Tablet 1 tablet Orall y Once a day Active Colyte w Flavor Packs 240 GM Solution Reconstituted as directed Orally as directed; Duration: 1 day(s) 10/21/2014 Active Social History Social History Additional Details Category Social Info Options Details Miscellaneous: Marital status: single Occupation: unemployed Section Notes: Nonsmoker; no alcohol Problems Problem Type SNOMED Code ICD Code Onset Dates Problem Status W/U Status Risk Notes Problem H. Pylori (93072442) Helicobacter pylori (H. pylori) infection (041.86) Active confirmed Problem Colon cancer screening (923597071) Colon cancer screening (V76.51) Active confirmed Problem Gastritis (9900088) Gastritis (535.50) Active confirmed Problem Long-term current use of drug therapy (123245724) Encounter for long-term (current) use of medications (V58.69) Active confirmed Plan Of Treatment Future Test Test Name Order Date COLONOSCOPY 10/13/2014 Insurance Providers Payer Name Payer Address Payer Phone Subscriber Number Group Number Insured Name Patient Relationship to Insured Coverage Start Date Coverage End Date MEDICARE OF [place] [address] [place] [address] [id number] JIM SANTIZO Self - patient is the insured MEDICAID OF [facility] [address] [place] [address] [id number] JIM SANTIZO Self - patient is the insured Medical (General) History Medical History History ICD Code Denies DC,CVA,Lung disease,renal disease NIDDM hypertension Hyperlipidemia Alzheimer's- mild Depression anemia in 1999-she underwent an upper endoscopy and colonoscopy with [facility] at [facility] which according to the pathology report was negative for celiac disease and negative for any polyps--there was gastritis with H. pylori-I don't have the procedure reports and am not sure if the H. pylori was ever treated--she also had a negative small bowel series in 2000 Surgical History Surgery Date(Month/Year) lump removed from breast-benign
== END 2025-07-20 15:58 | disposition home or self-care (01) ==
LOC: HO.HHCLNP 15:57
PROVIDERS: Visit Provider Nurse Practitioner Primary Care
DX: E11.69 Type 2 diabetes mellitus with other specified complication (principal); E78.5 Hyperlipidemia, unspecified
CPT/HCPCS: 82043; 82570